=== PATIENT | male | born 1995 | race Caucasian/White ===

== ENCOUNTER 2019-02-22 13:20 | Emergency (ER) | payer BC ==
[2019-02-22] MEDS ORDERED: 0.9 % SODIUM CHLORIDE 1,000 ML BAG IV ONE (13:57)
--- NOTE | 2019-02-22 14:01 | Emergency Department Record ---
Anxiety - General Chief Complaint: Anxiety Time Seen by Provider: 02/22/19 13:47 Source: Patient, Family Mode of Arrival: Ambulatory Limitations: No limitations - History of Present Illness Initial Comments: The patient is here due to a 3 day hx of worsening anxiety. He has a long hx of anxiety and panic attacks and usually smokes marijuana for it. Three days ago he was smoking a new batch and feels like he had a bad trip and thinks it was laced with something. Since he has had worsening palpitations and anxiety with nausea and intermittent vomiting. The patient denies any CP, SOB, LISA, or SHERIDAN's. The patient is not suicidal or homicidal. MD Complaint: Anxiety, Heart racing Onset/Timin -: Days(s) Symptoms: Palpitations Place: Home Previous History of Same: Yes Severity: Mild Quality: Constant Provoking factors: Other Improves With: Sleep, Other Worsens With: Thinking about event, Other Associated symptoms: Denies other symptoms - Related Data Home Medications: Home Medications Medication Instructions Recorded Confirmed Last Taken No Home Med [NO HOME MEDS] 02/22/19 02/22/19 Unknown Allergies/Adverse Reactions: Allergies Allergy/AdvReac Type Severity Reaction Status Date / Time No Known Drug Allergies Allergy Verified 02/22/19 13:54 Travel Screening - Travel/Exposure Within Last 30 Days Have you traveled within the last 30 days?: No - Travel/Exposure Within Last Year Have you traveled outside the [place] in the last year?: No - Additonal Travel Details Have you been exposed to anyone with a communicable illness?: No - Travel Symptoms Symptom Screening: None Review of Systems Constitutional: Denies: Chills, Fever Eyes: Denies: Eye discharge ENT: Denies: Congestion Respiratory: Denies: Cough, Dyspnea Cardiovascular: Denies: Arrhythmia Endocrine: Denies: Fatigue Gastrointestinal: Reports: Nausea, Vomiting Genitourinary: Denies: Hematuria Musculoskeletal: Denies: Arthralgia Skin: Denies: Bruising Past Medical History - SOCIAL HISTORY Smoking Status: Current every day smoker Alcohol Use: None Drug Use: None, Heavy Drug Use Detail:: Marijuana - RESPIRATORY Hx Respiratory Disorders: No - CARDIOVASCULAR Hx Cardio Disorders: No - NEURO Hx Neuro Disorders: No - GI Hx GI Disorders: No - Hx Genitourinary Disorders: No - ENDOCRINE Hx Endocrine Disorders: No Hx Diabetes: No Hx Thyroid Disease: No - MUSCULOSKELETAL Hx Musculoskeletal Disorders: No - PSYCH Hx Psych Problems: No - HEMATOLOGY/ONCOLOGY Hx Hematology/Oncology Disorders: No Family Medical History Any Significant Family History?: No Physical Exam - General General Appearance: Alert, Oriented x3, Cooperative, No acute distress (The patient is calm and cooperative and in no distress.) - Head Head exam: Atraumatic, Normocephalic, Normal inspection - Eye Eye exam: Normal appearance, PERRL - ENT Throat exam: Normal inspection. negative: Tonsillar erythema, Tonsillar exudate - Neck Neck exam: Normal inspection, Full ROM. negative: Tenderness - Respiratory Respiratory exam: Normal lung sounds bilaterally. negative: Respiratory distress - Cardiovascular Cardiovascular Exam: Regular rate, Normal rhythm, Normal heart sounds. negative: Diastolic murmur, Systolic murmur - GI/Abdominal GI/Abdominal exam: Soft, Normal bowel sounds. negative: Tenderness - Extremities Extremities exam: Normal inspection, Full ROM, Normal capillary refill. negative: Tenderness - Neurological Neurological exam: Alert, Normal gait. negative: Abnormal gait, Motor sensory deficit - Skin Skin exam: negative: Rash Course Vital Signs 02/22/19 13:40 Temperature 98.4 F Pulse Rate 93 H Respiratory 17 Rate Blood Pressure 153/103 Pulse Ox 98 - Reevaluation(s) Reevaluation #1: The patient is doing better at this time. He is resting comfortably in no distress. I did discuss the neg workup with him and the need for F/U with his PCP. We will provide him with 2 Ativan pills for home. 02/22/19 14:49 Medical Decision Making - Data Complexity MDM Data: Labs Ordered and/or Reviewed, EKG Ordered and/or Reviewed - Lab Data Result diagrams: 02/22/19 14:15 02/22/19 14:15 - EKG Data -: EKG Interpreted by Me EKG: No Acute Changes, Normal EKG Disposition Disposition: Discharge Clinical Impression: Anxiety Disposition: Home, Self-Care Condition: (2) Stable Instructions: Social Anxiety Disorder (ED) Additional Instructions: Please rest and take the Ativan if needed. Please see your doctor for recheck next week. Return to the ER for any worsening issues. Forms: Patient Portal Access Time of Disposition: 14:50 Quality - Quality Measures Quality Measures: N/A - Blood Pressure Screening View Details: Yes Does Patient Have Any of the Following: No Blood Pressure Classification: Hypertensive Reading Systolic Measurement: 153 Diastolic Measurement: 103 Screening for High Blood Pressure: < First Hypertensive BP, F/U Documented > [[id number]] First Hypertensive Follow-up Interventions: Referral to alternative/primary care provider.
[2019-02-22 14:26] LABS: ABSOLUTE NEUTROPHIL COUNT 8.08; BASO % 0.2 % (0-6); EOS % 0.1 % (0-6); GRAN % 71.3 % (47-80); HEMATOCRIT 48.6 % (42.0-52.0); MEAN CELL VOLUME 86.6 fl (81-97); MEAN CORPUSCULAR HEMOGLOBIN 30.3 pg (27-33); MEAN PLATELET VOLUME 9.3 fl (7.4-10.4); MONO % 9.4 % (0-9); PLATELET COUNT 420 K/uL (130-400); RED BLOOD COUNT 5.61 M/uL (4.40-5.70); RED CELL DISTRIBUTION WIDTH 12.5 % (11.5-14.5); URINE APPEARANCE CLEAR; URINE BILIRUBIN NEGATIVE (NEGATIVE); URINE BLOOD NEGATIVE (NEGATIVE); URINE COLOR YELLOW; URINE GLUCOSE (UA) NEGATIVE (NEGATIVE); URINE KETONE NEGATIVE (NEGATIVE); URINE LEUKOCYTE ESTERASE NEGATIVE (NEGATIVE); URINE NITRITE NEGATIVE (NEGATIVE); URINE PROTEIN NEGATIVE (NEGATIVE); URINE UROBILINOGEN 0.2 E.U./dL (0.20 - 1.00); WHITE BLOOD COUNT W/O DIFF 11.3 K/uL (4.2-12.2)
[2019-02-22 14:31] LABS: AMPHETAMINE SCREEN URINE NOT DETECTED; BARBITURATE SCREEN URINE NOT DETECTED; BENZODIAZEPINE SCREEN URINE NOT DETECTED; COCAINE SCREEN URINE NOT DETECTED; METHADONE SCREEN URINE NOT DETECTED; METHAMPHETAMINE SCREEN NOT DETECTED; OPIATE SCREEN URINE NOT DETECTED; OXYCODONE SCREEN URINE NOT DETECTED; PHENCYCLIDINE SCREEN URINE NOT DETECTED; PROPOXYPHENE SCREEN URINE NOT DETECTED; THC SCREEN URINE DETECTED; TRICYCLIC ANTIDEPRESSANT SCRN NOT DETECTED
[2019-02-22 14:40] LABS: BLOOD UREA NITROGEN 9 mg/dL (6-20); EST GLOMERULAR FILTRATION RATE > 60 mL/min
[2019-02-22 14:41] LABS: TOTAL PROTEIN 9.2 g/dL (6.6-8.7)
[2019-02-22 14:43] LABS: GLUCOSE,RANDOM 107 mg/dL (74-109)
[2019-02-22 14:45] LABS: ALB/GLOB RATIO 1.6 (1.1-1.8); ALBUMIN 5.6 g/dL (4.0-5.0); ALKALINE PHOSPHATASE 72 U/L (40-129); ALT/SGPT 37 U/L (<41); AST/SGOT 25 U/L (10.0-50.0)
[2019-02-22] MEDS ORDERED: LORAZEPAM 0.5 MG TABLET PO ONE (14:50)
== END 2019-02-22 15:03 | disposition home or self-care (01) ==
LOC: ER 13:20
DX: F41.0 Panic disorder [episodic paroxysmal anxiety] (principal); R00.2 Palpitations; R11.2 Nausea with vomiting, unspecified; F17.210 Nicotine dependence, cigarettes, uncomplicated; F12.90 Cannabis use, unspecified, uncomplicated
CPT/HCPCS: 80053; 80305; 81003; 85025; 93005; 93010; 96360; 99284; J7030